=== PATIENT | male | born 1990 | race African-American/Black ===

== ENCOUNTER 2021-08-14 18:46 | Inpatient (IN) ==
[2021-08-14] MEDS ORDERED: Ipratropium/Albuterol Neb 3 ML ONE (19:07)
[2021-08-14] MEDS ORDERED: methylPREDNISolone 125 MG/2 ML VIAL ONE (19:07)
[2021-08-14 19:21] LABS: Basophils % 0.2 %; Hematocrit 26.6 % (37.5-50.1); Hemoglobin 9.2 g/dL (12.9-16.9); Immature Granulocytes % 3.8 % (0-4); Lymphocytes # 0.6 K/mcL (0.6-4.6); Mean Corpuscular HGB Conc 34.6 g/dL (31.6-35.5); Mean Corpuscular Hemoglobin 30.3 pg (28.0-33.3); Mean Corpuscular Volume 87.5 fL (83.0-100.0); Mean Platelet Volume 12.8 fL (9.4-12.4); Monocytes # 0.4 K/mcL (0.0-1.3); Monocytes % 2.5 %; Neutrophils # 13.4 K/mcL (1.6-8.9); Nucleated Red Blood Cells 0.4 /100 WBC (0); Platelet Count 232 K/mcL (140-400); Red Blood Count 3.04 M/mcL (4.19-5.50); Red Cell Distribution Width 13.6 % (11.5-14.5); Segmented Neutrophils % 89.5 %
[2021-08-14 19:28] LABS: INR 1.3
[2021-08-14 19:31] LABS: Activated Partial Thrombo Time 28.2 Seconds (26.0-36.0)
[2021-08-14 19:34] LABS: VBG HCO3 11 mEq/L (21-27); VBG PCO2 35 mmHg (41-51); VBG PH 7.11 pH Units (7.32-7.42); VBG PO2 119 mmHg (25-50)
[2021-08-14 19:44] LABS: Blood Urea Nitrogen > 130 mg/dL (6-20); Calcium 5.4 mg/dL (8.6-10.3); Carbon Dioxide 11 mEq/L (23-29); Chloride 89 mEq/L (98-107); Glucose 239 mg/dL (70-105); Potassium 5.7 mEq/L (3.5-5.1); Sodium 125 mEq/L (136-145); Troponin I 0.54 ng/mL (< 0.04)
[2021-08-14 19:56] LABS: Influenza A PCR Negative (Negative); Influenza B PCR Negative (Negative); Resp. Syncytial Virus PCR Negative (Negative)
[2021-08-14 19:58] LABS: SARS-CoV-2 by PCR (In House) Positive (Negative)
[2021-08-14] MEDS ORDERED: Sodium Bicarbonate 150 MEQ in Water for inj. (sterile) 1,000 ML IVC SCH (20:00)
[2021-08-14] MEDS ORDERED: cefTRIAXone 1,000 MG in Water for inj. (sterile) 10 ML IVP ONE ×2 (20:00→20:57)
[2021-08-14 20:04] LABS: Alanine Aminotransferase 19 Units/L (7-52); Albumin 3.3 g/dL (3.5-5.7); Albumin/Globulin Ratio 0.9 (1.1-2.2); Alkaline Phosphatase 75 Units/L (34-104); Aspartate Amino Transferase 27 Units/L (13-39); Bilirubin,Indirect 0.3 mg/dL (0.0-1.0); Bilirubin,Total 0.3 mg/dL (0.3-1.0); Globulin 3.5 g/dL (2.4-3.5); Total Protein 6.8 g/dL (6.4-8.9)
[2021-08-14] MEDS ORDERED: Bumetanide 1 MG/4 ML VIAL IVP ONE (20:08)
[2021-08-14] MEDS: Calcium Gluconate 1gm/50mL BAG IVPB SCH ×2 (20:11→21:25)
[2021-08-14] MEDS ORDERED: Dexamethasone Sodium Phos/PF 10 MG/ML VIAL IVP ONE (20:12)
[2021-08-14 20:50] LABS: Magnesium 2.5 mg/dL (1.6-2.6); Phosphorous 13.7 mg/dL (2.7-4.5)
[2021-08-14 20:54] LABS: Amorphous Sediment,Urine Few per hpf (None-Few); Bacteria,Urine Few per hpf (None-Few); Bilirubin,Urine Negative (Negative); Blood,Urine Moderate (Negative); Clarity,Urine Clear (Clear); Color,Urine Light-Yellow (Yellow); Glucose,Urine (UA) 300 mg/dL (Normal); Ketones,Urine Negative (Negative); Leukocyte Esterase,Urine Negative (Negative); Nitrite,Urine Negative (Negative); Protein,Urine >=600 mg/dL (Neg-Trace); RBC,Urine 0-3 per hpf (0-3); Specific Gravity,Urine 1.015 (1.010-1.025); Urobilinogen,Urine Normal (Normal)
[2021-08-14] MEDS ORDERED: *HR* Heparin 5,000 UNIT/ML VIAL IVP ONE (21:01)
[2021-08-14] MEDS ORDERED: *HR* Heparin 5,000 UNIT/ML VIAL IVP PRN ×2 (21:01)
[2021-08-14] MEDS ORDERED: Melatonin 3 MG TABLET PO PRN (21:20)
[2021-08-14] MEDS ORDERED: Naloxone 0.4 MG/ML INJ IVP PRN (21:20)
[2021-08-14 21:24] LABS: Acetaminophen 15 mcg/mL (10-20); Salicylate < 2.5 mg/dL (15.0-30.0)
[2021-08-14 21:25] LABS: Amphetamine Screen,Urine Negative ng/mL (Cutoff=1000); Barbiturate Screen,Urine Negative ng/mL (Cutoff=200); Benzodiazepines Screen,Urine Negative ng/mL (Cutoff=200); Cannabinoid Screen,Urine Negative ng/mL (Cutoff = 50); Cocaine Screen,Urine Negative ng/mL (Cutoff= 300); Opiate Screen,Urine Negative ng/mL (Cutoff=300); Phencyclidine Screen,Urine Negative ng/mL (Cutoff=25)
[2021-08-14] MEDS: Heparin 25,000UNIT/250ML 1/2NS 25,000 UNIT/250 ML IV.SOLN IVC SCH (21:25)
[2021-08-14] MEDS ORDERED: Perflutren Lipid Microsphere 1.3 ML in 0.9 % Sodium Chloride 8.7 ML IVP PRN (21:34)
[2021-08-14 22:05] LABS: Creatine Kinase 1308 Units/L (30-223)
[2021-08-14] MEDS: Ipratropium 1 PUFF INHALER IH SCH (22:49)
[2021-08-15] MEDS ORDERED: Morphine Sulfate 2 MG/ML SYRINGE IVP ONE (00:20)
[2021-08-15 00:26] LABS: ABG Base Excess -15 mEq/L (-2 to 3); ABG HCO3 12 mEq/L (21-27); ABG Oxygen Saturation 98 % (95-98); ABG PCO2 32 mmHg (35-45); ABG PO2 128 mmHg (85-104); ABG TCO2 13 mEq/L (20-26)
[2021-08-15] MEDS ORDERED: Dexmedetomidine HCl 400 MCG/100 ML MLS IVC ONE (00:29)
[2021-08-15] MEDS ORDERED: Perflutren Lipid Microsphere 1.3 ML in 0.9 % Sodium Chloride 8.7 ML IVP PRN (00:40)
[2021-08-15 00:43] LABS: VBG Ionized Calcium 0.59 mmol/L (1.15-1.35)
[2021-08-15 00:44] LABS: Basophils # 0.1 K/mcL (0.0-0.2); Basophils % 0.3 %; Hematocrit 26.2 % (37.5-50.1); Immature Granulocytes % 3.3 % (0-4); Lymphocytes # 0.5 K/mcL (0.6-4.6); Lymphocytes % 2.9 %; Mean Corpuscular HGB Conc 34.4 g/dL (31.6-35.5); Mean Corpuscular Volume 87.3 fL (83.0-100.0); Mean Platelet Volume 12.9 fL (9.4-12.4); Monocytes # 0.4 K/mcL (0.0-1.3); Neutrophils # 16.5 K/mcL (1.6-8.9); Nucleated Red Blood Cells 0.7 /100 WBC (0); Platelet Count 225 K/mcL (140-400); Red Cell Distribution Width 13.6 % (11.5-14.5); Segmented Neutrophils % 91.5 %
[2021-08-15] MEDS: Dexmedetomidine HCl 400 MCG/100 ML MLS IVC SCH ×3 (00:45→07:50)
[2021-08-15] MEDS: Cefepime HCl 1,000 MG in 0.9 % Sodium Chloride 10 ML IVP SCH ×3 (00:49→14:01)
[2021-08-15 00:56] LABS: INR 1.4; Prothrombin Time 15.3 Seconds (9.4-12.1)
[2021-08-15 01:04] LABS: Activated Partial Thrombo Time 73.1 Seconds (26.0-36.0)
[2021-08-15 01:06] LABS: Blood Urea Nitrogen > 130 mg/dL (6-20); C-Reactive Protein 125 mg/L (Less than 10); Calcium 5.6 mg/dL (8.6-10.3); Carbon Dioxide 12 mEq/L (23-29); Chloride 90 mEq/L (98-107); Glucose 148 mg/dL (70-105); Lactate Dehydrogenase 737 Units/L (140-271); Magnesium 2.4 mg/dL (1.6-2.6); Phosphorous 13.3 mg/dL (2.7-4.5); Potassium 5.8 mEq/L (3.5-5.1); Sodium 127 mEq/L (136-145); Troponin I 0.45 ng/mL (< 0.04)
[2021-08-15] MEDS ORDERED: Insulin Human Regular 10 UNIT in 0.9 % Sodium Chloride 10 ML IV ONE (01:10)
[2021-08-15] MEDS ORDERED: *HR* Dextrose 50 % in Water (Syg) 50 ML SYRINGE IVP ONE (01:10)
[2021-08-15] MEDS ORDERED: SODIUM ZIRCONIUM CYCLOSILICATE 5 GM POWD.PACK PO SCH ×2 (01:12→05:45)
[2021-08-15] MEDS ORDERED: Furosemide 40 MG/4 ML VIAL IVP ONE ×2 (01:12→10:51)
[2021-08-15] MEDS: Calcium Gluconate 1gm/50mL 1 GM/50 ML BAG IVPB SCH ×4 (01:33→17:21)
[2021-08-15] MEDS: Sodium Bicarbonate 150 MEQ in D5% in Water 1,000 ML IVC SCH ×2 (01:34→15:15)
[2021-08-15] MEDS: Ipratropium 1 PUFF INHALER IH SCH ×4 (03:55→19:32)
[2021-08-15 04:53] LABS: Basophils % 0.1 %; Hematocrit 21.5 % (37.5-50.1); Hemoglobin 7.6 g/dL (12.9-16.9); Immature Granulocytes % 1.9 % (0-4); Lymphocytes # 0.6 K/mcL (0.6-4.6); Lymphocytes % 4.1 %; Mean Corpuscular HGB Conc 35.3 g/dL (31.6-35.5); Mean Corpuscular Hemoglobin 30.5 pg (28.0-33.3); Mean Corpuscular Volume 86.3 fL (83.0-100.0); Mean Platelet Volume 12.5 fL (9.4-12.4); Monocytes # 0.4 K/mcL (0.0-1.3); Neutrophils # 12.5 K/mcL (1.6-8.9); Nucleated Red Blood Cells 0.4 /100 WBC (0); Platelet Count 147 K/mcL (140-400); Red Blood Count 2.49 M/mcL (4.19-5.50); Red Cell Distribution Width 13.2 % (11.5-14.5); Segmented Neutrophils % 90.9 %; White Blood Count 13.7 K/mcL (4.3-11.1)
[2021-08-15 05:03] LABS: INR 1.3; Prothrombin Time 14.7 Seconds (9.4-12.1)
[2021-08-15 05:06] LABS: Complement C3 109 mg/dL (87-200)
[2021-08-15 05:14] LABS: Alanine Aminotransferase 17 Units/L (7-52); Albumin 2.6 g/dL (3.5-5.7); Albumin/Globulin Ratio 0.9 (1.1-2.2); Alkaline Phosphatase 63 Units/L (34-104); Aspartate Amino Transferase 25 Units/L (13-39); Bilirubin,Direct 0.1 mg/dL (0.0-0.2); Bilirubin,Indirect 0.2 mg/dL (0.0-1.0); Bilirubin,Total 0.3 mg/dL (0.3-1.0); Blood Urea Nitrogen > 130 mg/dL (6-20); Calcium 5.9 mg/dL (8.6-10.3); Carbon Dioxide 16 mEq/L (23-29); Chloride 92 mEq/L (98-107); Globulin 2.8 g/dL (2.4-3.5); Glucose 112 mg/dL (70-105); Magnesium 2.5 mg/dL (1.6-2.6); Phosphorous 12.8 mg/dL (2.7-4.5); Sodium 129 mEq/L (136-145); Total Protein 5.4 g/dL (6.4-8.9)
[2021-08-15 05:26] LABS: Hepatitis B Surface Antigen Nonreactive (Nonreactive)
[2021-08-15 05:54] LABS: Mixed Venous Blood pCO2 35 mmHg (44-46); Mixed Venous Blood pH 7.23 pH Units (7.34-7.36); Mixed Venous Blood pO2 42 mmHg (35-45)
[2021-08-15 05:55] LABS: Hepatitis B Core IgM Nonreactive (Nonreactive)
[2021-08-15 05:56] LABS: Hepatitis A Antibody IgM Nonreactive (Nonreactive); Hepatitis C Virus Antibody Nonreactive (Nonreactive)
[2021-08-15] MEDS: Calcium Gluconate 1gm/50mL 1 GM/50 ML BAG IVPB PRN ×4 (06:02→21:44)
[2021-08-15 06:56] LABS: Estimated Average Glucose 131 mg/dl; Hemoglobin A1C 6.2 %
[2021-08-15 10:11] LABS: Hematocrit 21.3 % (37.5-50.1); Hemoglobin 7.4 g/dL (12.9-16.9)
[2021-08-15 10:35] LABS: Blood Urea Nitrogen > 130 mg/dL (6-20); Carbon Dioxide 15 mEq/L (23-29); Chloride 90 mEq/L (98-107); Glucose 150 mg/dL (70-105); Potassium 6.4 mEq/L (3.5-5.1); Sodium 126 mEq/L (136-145)
[2021-08-15] MEDS: SODIUM ZIRCONIUM CYCLOSILICATE 5 GM POWD.PACK PO SCH ×2 (11:24→19:55)
[2021-08-15] MEDS: niCARdipine 20 MG/200 ML MLS IVC SCH ×4 (13:12→22:38)
[2021-08-15] MEDS: Heparin 25,000UNIT/250ML 1/2NS 25,000 UNIT/250 ML IV.SOLN IVC SCH (15:13)
[2021-08-15 16:01] LABS: Blood Urea Nitrogen > 130 mg/dL (6-20); Calcium 6.1 mg/dL (8.6-10.3); Carbon Dioxide 14 mEq/L (23-29); Chloride 87 mEq/L (98-107); Glucose 177 mg/dL (70-105); Potassium 4.6 mEq/L (3.5-5.1); Sodium 127 mEq/L (136-145)
[2021-08-15] MEDS: Aspirin Enteric Coated 81 MG Tablet PO SCH (16:36)
[2021-08-15 20:47] LABS: VBG Ionized Calcium 0.66 mmol/L (1.15-1.35)
[2021-08-15 20:58] LABS: Blood Urea Nitrogen > 130 mg/dL (6-20); Calcium 6.2 mg/dL (8.6-10.3); Carbon Dioxide 16 mEq/L (23-29); Chloride 87 mEq/L (98-107); Glucose 183 mg/dL (70-105); Magnesium 2.4 mg/dL (1.6-2.6); Phosphorous 13.1 mg/dL (2.7-4.5); Potassium 4.3 mEq/L (3.5-5.1); Sodium 127 mEq/L (136-145)
[2021-08-15 22:16] LABS: Hematocrit 20.3 % (37.5-50.1); Hemoglobin 7.2 g/dL (12.9-16.9)
[2021-08-16] MEDS: niCARdipine 20 MG/200 ML MLS IVC SCH ×7 (01:24→21:54)
[2021-08-16 03:30] LABS: Basophils % 0.1 %; Hematocrit 19.7 % (37.5-50.1); Immature Granulocytes % 1.2 % (0-4); Lymphocytes # 0.5 K/mcL (0.6-4.6); Lymphocytes % 3.1 %; Mean Corpuscular HGB Conc 35.5 g/dL (31.6-35.5); Mean Corpuscular Hemoglobin 30.6 pg (28.0-33.3); Mean Platelet Volume 12.8 fL (9.4-12.4); Monocytes # 0.8 K/mcL (0.0-1.3); Monocytes % 5.3 %; Neutrophils # 13.2 K/mcL (1.6-8.9); Nucleated Red Blood Cells 0.5 /100 WBC (0); Platelet Count 200 K/mcL (140-400); Red Blood Count 2.29 M/mcL (4.19-5.50); Red Cell Distribution Width 13.5 % (11.5-14.5); Segmented Neutrophils % 90.3 %; White Blood Count 14.6 K/mcL (4.3-11.1)
[2021-08-16] MEDS: Ipratropium 1 PUFF INHALER IH SCH ×4 (03:33→20:36)
[2021-08-16 03:38] LABS: VBG Ionized Calcium 0.63 mmol/L (1.15-1.35)
[2021-08-16 03:57] LABS: Blood Urea Nitrogen > 130 mg/dL (6-20); Calcium 6.1 mg/dL (8.6-10.3); Carbon Dioxide 16 mEq/L (23-29); Chloride 87 mEq/L (98-107); Glucose 192 mg/dL (70-105); Magnesium 2.3 mg/dL (1.6-2.6); Phosphorous 13.2 mg/dL (2.7-4.5); Potassium 4.5 mEq/L (3.5-5.1); Sodium 128 mEq/L (136-145)
[2021-08-16] MEDS: Calcium Gluconate 1gm/50mL 1 GM/50 ML BAG IVPB PRN ×2 (04:46→05:14)
[2021-08-16] MEDS: Sodium Bicarbonate 150 MEQ in D5% in Water 1,000 ML IVC SCH ×2 (08:00→23:39)
[2021-08-16] MEDS: Cefepime HCl 1,000 MG in 0.9 % Sodium Chloride 10 ML IVP SCH (08:07)
[2021-08-16] MEDS: Aspirin Enteric Coated 81 MG Tablet PO SCH (08:07)
[2021-08-16] MEDS: SODIUM ZIRCONIUM CYCLOSILICATE 5 GM POWD.PACK PO SCH (08:08)
[2021-08-16] MEDS ORDERED: 0.9 % Sodium Chloride 250 ML IVC PRN (08:34)
[2021-08-16] MEDS ORDERED: 0.9 % Sodium Chloride 1,000 ML PRIME SCH (08:45)
[2021-08-16] MEDS: Acetaminophen 325 MG TABLET PO PRN (09:24)
[2021-08-16 09:56] LABS: VBG Ionized Calcium 0.62 mmol/L (1.15-1.35)
[2021-08-16 10:14] LABS: % Iron Saturation 56 % (20-55); Blood Urea Nitrogen > 130 mg/dL (6-20); Calcium 5.9 mg/dL (8.6-10.3); Carbon Dioxide 17 mEq/L (23-29); Chloride 86 mEq/L (98-107); Glucose 171 mg/dL (70-105); Iron 105 mcg/dL (65-175); Magnesium 2.3 mg/dL (1.6-2.6); Potassium 4.3 mEq/L (3.5-5.1); Sodium 127 mEq/L (136-145); Transferrin 133 mg/dL (203-362)
[2021-08-16] MEDS: Heparin 25,000UNIT/250ML 1/2NS 25,000 UNIT/250 ML IV.SOLN IVC SCH (11:13)
[2021-08-16 12:43] LABS: Protein/Creatinine Ratio,Urine 3.99 mg/mg (0.00-0.20)
[2021-08-16 13:06] LABS: Hepatitis B Surface Antibody > 850.00 mIU/mL
[2021-08-16 13:16] LABS: Hepatitis B Surface Antigen Nonreactive (Nonreactive)
[2021-08-16] MEDS ORDERED: Heparin 1,000 UNITS/500 mL 500 ML ONE (13:23)
[2021-08-16] MEDS ORDERED: *HR* Heparin 5,000 UNIT/ML VIAL ONE (13:50)
[2021-08-16 14:59] LABS: Hematocrit 17.6 % (37.5-50.1); Hemoglobin 6.3 g/dL (12.9-16.9)
[2021-08-16] MEDS ORDERED: Ergocalciferol (VIT D2) 50,000 UNIT (1.25MG) CAP PO SCH (15:00)
[2021-08-16 16:42] LABS: VBG Ionized Calcium 0.69 mmol/L (1.15-1.35)
[2021-08-16 17:09] LABS: Blood Urea Nitrogen > 130 mg/dL (6-20); Calcium 6.4 mg/dL (8.6-10.3); Carbon Dioxide 20 mEq/L (23-29); Chloride 87 mEq/L (98-107); Glucose 244 mg/dL (70-105); Potassium 4.1 mEq/L (3.5-5.1); Sodium 129 mEq/L (136-145)
[2021-08-16] MEDS: Calcium Gluconate 1gm/50mL 1 GM/50 ML BAG IVPB SCH ×2 (18:15→19:45)
[2021-08-16] MEDS: Insulin LISPRO 300 UNITS/3 ML VIAL SUBQ SCH (18:34)
[2021-08-16 18:43] LABS: Hematocrit 18.3 % (37.5-50.1); Hemoglobin 6.5 g/dL (12.9-16.9)
[2021-08-16] MEDS ORDERED: Calcium Chloride 1,000 MG in 0.9 % Sodium Chloride 100 ML IVPB ONE (21:45)
[2021-08-17] MEDS: Insulin LISPRO 300 UNITS/3 ML VIAL SUBQ SCH ×5 (00:13→23:56)
[2021-08-17] MEDS: niCARdipine 20 MG/200 ML MLS IVC SCH ×6 (00:36→23:17)
[2021-08-17 03:48] LABS: Hematocrit 18.7 % (37.5-50.1); Hemoglobin 6.6 g/dL (12.9-16.9); Mean Corpuscular HGB Conc 35.3 g/dL (31.6-35.5); Mean Corpuscular Hemoglobin 29.9 pg (28.0-33.3); Mean Corpuscular Volume 84.6 fL (83.0-100.0); Mean Platelet Volume 12.4 fL (9.4-12.4); Nucleated Red Blood Cells 1.3 /100 WBC (0); Platelet Count 179 K/mcL (140-400); Red Blood Count 2.21 M/mcL (4.19-5.50); White Blood Count 10.6 K/mcL (4.3-11.1)
[2021-08-17 03:50] LABS: VBG Ionized Calcium 0.79 mmol/L (1.15-1.35)
[2021-08-17 04:04] LABS: Alanine Aminotransferase 18 Units/L (7-52); Albumin 2.8 g/dL (3.5-5.7); Alkaline Phosphatase 54 Units/L (34-104); Aspartate Amino Transferase 18 Units/L (13-39); Bilirubin,Total 0.2 mg/dL (0.3-1.0); Blood Urea Nitrogen 128 mg/dL (6-20); Calcium 6.8 mg/dL (8.6-10.3); Carbon Dioxide 23 mEq/L (23-29); Chloride 89 mEq/L (98-107); Globulin 2.8 g/dL (2.4-3.5); Glucose 224 mg/dL (70-105); Magnesium 2.2 mg/dL (1.6-2.6); Osmolality,Calculated 316 (280-300); Phosphorous 8.8 mg/dL (2.7-4.5); Potassium 4.2 mEq/L (3.5-5.1); Sodium 129 mEq/L (136-145); Total Protein 5.6 g/dL (6.4-8.9)
[2021-08-17] MEDS: Ipratropium 1 PUFF INHALER IH SCH ×4 (04:05→21:50)
[2021-08-17 04:06] LABS: Lymphocytes # 2.5 K/mcL (0.6-4.6); Monocytes # 0.2 K/mcL (0.0-1.3); Neutrophils # 7.8 K/mcL (1.6-8.9); Platelet Estimate Normal (Normal)
[2021-08-17] MEDS: Heparin 25,000UNIT/250ML 1/2NS 25,000 UNIT/250 ML IV.SOLN IVC SCH (04:21)
[2021-08-17 07:15] LABS: VBG Ionized Calcium 0.75 mmol/L (1.15-1.35)
[2021-08-17 07:16] LABS: Hematocrit 18.6 % (37.5-50.1); Hemoglobin 6.5 g/dL (12.9-16.9)
[2021-08-17] MEDS ORDERED: *HR* Heparin 10,000 UNIT/10 ML VIAL IV PRN (08:36)
[2021-08-17] MEDS ORDERED: 0.9 % Sodium Chloride 250 ML IVC PRN (08:36)
[2021-08-17] MEDS: Cefepime HCl 1,000 MG in 0.9 % Sodium Chloride 10 ML IVP SCH (08:49)
[2021-08-17] MEDS: calcitrioL 0.25 MCG CAPSULE PO SCH (08:49)
[2021-08-17] MEDS: Aspirin Enteric Coated 81 MG Tablet PO SCH (08:49)
[2021-08-17] MEDS: Dexamethasone Sodium Phos/PF 10 MG/ML VIAL IVP SCH (08:50)
[2021-08-17] MEDS ORDERED: Metoprolol XL (24 HR) Succ 25 MG TAB.ER.24H PO SCH (09:00)
[2021-08-17] MEDS: Dexmedetomidine HCl 400 MCG/100 ML MLS IVC SCH (18:11)
[2021-08-17 21:00] LABS: Basophils % 0.2 %; Hematocrit 19.7 % (37.5-50.1); Hemoglobin 6.8 g/dL (12.9-16.9); Immature Granulocytes % 4.5 % (0-4); Lymphocytes # 0.4 K/mcL (0.6-4.6); Lymphocytes % 2.5 %; Mean Corpuscular HGB Conc 34.5 g/dL (31.6-35.5); Mean Corpuscular Hemoglobin 29.8 pg (28.0-33.3); Mean Corpuscular Volume 86.4 fL (83.0-100.0); Mean Platelet Volume 12.4 fL (9.4-12.4); Monocytes % 6.3 %; Neutrophils # 13.9 K/mcL (1.6-8.9); Platelet Count 194 K/mcL (140-400); Red Blood Count 2.28 M/mcL (4.19-5.50); Red Cell Distribution Width 14.6 % (11.5-14.5); Segmented Neutrophils % 86.5 %
[2021-08-17 21:01] LABS: VBG Ionized Calcium 0.85 mmol/L (1.15-1.35)
[2021-08-17 21:03] LABS: White Blood Count 16.1 K/mcL (4.3-11.1)
[2021-08-17] MEDS ORDERED: Calcium Chloride 2,000 MG in 0.9 % Sodium Chloride 100 ML IVPB ONE (21:14)
[2021-08-17 21:15] LABS: Calcium 7.1 mg/dL (8.6-10.3); Potassium 4.3 mEq/L (3.5-5.1)
[2021-08-17] MEDS ORDERED: 0.9 % Sodium Chloride 250 ML ONE (21:59)
[2021-08-18] MEDS: niCARdipine 20 MG/200 ML MLS IVC SCH ×5 (01:23→21:39)
[2021-08-18] MEDS: Acetaminophen 325 MG TABLET PO PRN (03:26)
[2021-08-18] MEDS: Ipratropium 1 PUFF INHALER IH SCH ×4 (03:53→19:45)
[2021-08-18 04:17] LABS: Basophils # 0.1 K/mcL (0.0-0.2); Basophils % 0.3 %; Immature Granulocytes % 4.6 % (0-4); Lymphocytes # 0.4 K/mcL (0.6-4.6); Lymphocytes % 1.8 %; Mean Corpuscular HGB Conc 34.8 g/dL (31.6-35.5); Mean Corpuscular Volume 86.1 fL (83.0-100.0); Mean Platelet Volume 11.8 fL (9.4-12.4); Monocytes # 1.5 K/mcL (0.0-1.3); Monocytes % 7.8 %; Neutrophils # 16.6 K/mcL (1.6-8.9); Nucleated Red Blood Cells 0.9 /100 WBC (0); Platelet Count 204 K/mcL (140-400); Red Blood Count 2.67 M/mcL (4.19-5.50); Red Cell Distribution Width 14.7 % (11.5-14.5); Segmented Neutrophils % 85.5 %; White Blood Count 19.4 K/mcL (4.3-11.1)
[2021-08-18 04:18] LABS: VBG Ionized Calcium 0.94 mmol/L (1.15-1.35)
[2021-08-18 04:41] LABS: Albumin 3.2 g/dL (3.5-5.7); Bilirubin,Total 0.3 mg/dL (0.3-1.0); Globulin 3.3 g/dL (2.4-3.5); Magnesium 2.5 mg/dL (1.6-2.6); Phosphorous 7.2 mg/dL (2.7-4.5); Potassium 4.6 mEq/L (3.5-5.1); Total Protein 6.5 g/dL (6.4-8.9)
[2021-08-18] MEDS ORDERED: Calcium Chloride 2,000 MG in 0.9 % Sodium Chloride 100 ML IVPB ONE (05:34)
[2021-08-18] MEDS: Insulin LISPRO 300 UNITS/3 ML VIAL SUBQ SCH ×3 (06:06→18:02)
[2021-08-18] MEDS: Heparin 25,000UNIT/250ML 1/2NS 25,000 UNIT/250 ML IV.SOLN IVC SCH (06:52)
[2021-08-18] MEDS ORDERED: 0.9 % Sodium Chloride 250 ML IVC PRN (07:58)
[2021-08-18] MEDS: Cefepime HCl 1,000 MG in 0.9 % Sodium Chloride 10 ML IVP SCH (07:59)
[2021-08-18] MEDS: Dexamethasone Sodium Phos/PF 10 MG/ML VIAL IVP SCH (08:00)
[2021-08-18] MEDS: calcitrioL 0.25 MCG CAPSULE PO SCH (08:01)
[2021-08-18] MEDS: Aspirin Enteric Coated 81 MG Tablet PO SCH (08:01)
[2021-08-18 10:42] LABS: ANA IgG by ELISA NONE DETECTED (None Detected)
[2021-08-18] MEDS: Dexmedetomidine HCl 400 MCG/100 ML MLS IVC SCH (14:23)
[2021-08-18] MEDS: amLODIPine 5 MG TABLET PO SCH (16:25)
[2021-08-18] MEDS: *HR* Heparin 5,000 UNIT/ML VIAL SQ SCH (17:46)
[2021-08-19] MEDS: niCARdipine 20 MG/200 ML MLS IVC SCH ×6 (01:48→20:56)
[2021-08-19] MEDS: Ipratropium 1 PUFF INHALER IH SCH ×4 (03:58→20:19)
[2021-08-19 04:04] LABS: Hemoglobin 8.1 g/dL (12.9-16.9)
[2021-08-19 04:06] LABS: Hematocrit 24.1 % (37.5-50.1); Mean Corpuscular HGB Conc 33.6 g/dL (31.6-35.5); Mean Corpuscular Hemoglobin 29.6 pg (28.0-33.3); Mean Platelet Volume 12.4 fL (9.4-12.4); Nucleated Red Blood Cells 0.6 /100 WBC (0); Platelet Count 199 K/mcL (140-400); Red Blood Count 2.74 M/mcL (4.19-5.50); Red Cell Distribution Width 15.1 % (11.5-14.5); White Blood Count 26.2 K/mcL (4.3-11.1)
[2021-08-19 04:09] LABS: VBG Ionized Calcium 0.94 mmol/L (1.15-1.35)
[2021-08-19 04:25] LABS: Bilirubin,Total 0.4 mg/dL (0.3-1.0); Calcium 7.9 mg/dL (8.6-10.3); Globulin 3.1 g/dL (2.4-3.5); Magnesium 2.4 mg/dL (1.6-2.6); Potassium 4.4 mEq/L (3.5-5.1); Total Protein 6.1 g/dL (6.4-8.9)
[2021-08-19 04:34] LABS: Lymphocytes # 0.5 K/mcL (0.6-4.6); Monocytes # 1.1 K/mcL (0.0-1.3); Neutrophils # 24.1 K/mcL (1.6-8.9); Platelet Estimate Normal (Normal)
[2021-08-19] MEDS ORDERED: Calcium Chloride 2,000 MG in 0.9 % Sodium Chloride 100 ML IVPB ONE (04:53)
[2021-08-19] MEDS: Insulin LISPRO 300 UNITS/3 ML VIAL SUBQ SCH ×4 (05:09→18:06)
[2021-08-19] MEDS: *HR* Heparin 5,000 UNIT/ML VIAL SQ SCH (05:11)
[2021-08-19] MEDS: Dexamethasone Sodium Phos/PF 10 MG/ML VIAL IVP SCH (07:57)
[2021-08-19] MEDS: amLODIPine 5 MG TABLET PO SCH (07:59)
[2021-08-19] MEDS: Aspirin Enteric Coated 81 MG Tablet PO SCH (07:59)
[2021-08-19] MEDS ORDERED: *HR* Heparin 10,000 UNIT/10 ML VIAL IV PRN (08:00)
[2021-08-19] MEDS: Cefepime HCl 1,000 MG in 0.9 % Sodium Chloride 10 ML IVP SCH ×2 (08:00→17:02)
[2021-08-19] MEDS: calcitrioL 0.25 MCG CAPSULE PO SCH (08:00)
[2021-08-19] MEDS ORDERED: 0.9 % Sodium Chloride 250 ML IVC PRN (08:00)
[2021-08-19] MEDS: hydrALAZINE 25 MG TABLET PO SCH ×2 (08:17→20:17)
[2021-08-19] MEDS ORDERED: amLODIPine 5 MG TABLET PO SCH (09:00)
[2021-08-19] MEDS ORDERED: amLODIPine 5 MG TABLET PO ONE (09:30)
[2021-08-19] MEDS: Dexmedetomidine HCl 400 MCG/100 ML MLS IVC SCH ×4 (10:16→20:54)
[2021-08-19] MEDS: Nitroglycerin 1 INCH/GM PACKET TP SCH (12:05)
[2021-08-19] MEDS ORDERED: *HR* Heparin 5,000 UNIT/ML VIAL IVP PRN (14:37)
[2021-08-19] MEDS ORDERED: *HR* Heparin 5,000 UNIT/ML VIAL IVP ONE (14:37)
[2021-08-19] MEDS: Heparin 25,000UNIT/250ML 1/2NS 25,000 UNIT/250 ML IV.SOLN IVC SCH (15:09)
[2021-08-20] MEDS: Dexmedetomidine HCl 400 MCG/100 ML MLS IVC SCH ×6 (00:43→17:57)
[2021-08-20] MEDS: Insulin LISPRO 300 UNITS/3 ML VIAL SUBQ SCH ×4 (00:48→18:00)
[2021-08-20 01:52] LABS: Hematocrit 22.7 % (37.5-50.1); Hemoglobin 7.6 g/dL (12.9-16.9); Mean Corpuscular HGB Conc 33.5 g/dL (31.6-35.5); Mean Corpuscular Hemoglobin 29.6 pg (28.0-33.3); Mean Corpuscular Volume 88.3 fL (83.0-100.0); Mean Platelet Volume 12.5 fL (9.4-12.4); Nucleated Red Blood Cells 0.2 /100 WBC (0); Platelet Count 128 K/mcL (140-400); Red Blood Count 2.57 M/mcL (4.19-5.50); Red Cell Distribution Width 14.6 % (11.5-14.5); White Blood Count 17.5 K/mcL (4.3-11.1)
[2021-08-20 01:56] LABS: VBG Ionized Calcium 1.02 mmol/L (1.15-1.35)
[2021-08-20] MEDS ORDERED: Vancomycin 1,750 MG/517.5 ML IV.SOLN IVPB ONE (02:00)
[2021-08-20 02:10] LABS: Albumin 2.5 g/dL (3.5-5.7); Albumin/Globulin Ratio 0.9 (1.1-2.2); Bilirubin,Total 0.3 mg/dL (0.3-1.0); Calcium 7.8 mg/dL (8.6-10.3); Globulin 2.9 g/dL (2.4-3.5); Magnesium 2.5 mg/dL (1.6-2.6); Phosphorous 7.2 mg/dL (2.7-4.5); Potassium 5.1 mEq/L (3.5-5.1); Total Protein 5.4 g/dL (6.4-8.9)
[2021-08-20] MEDS: niCARdipine 20 MG/200 ML MLS IVC SCH ×4 (02:36→15:56)
[2021-08-20 03:17] LABS: Lymphocytes # 0.4 K/mcL (0.6-4.6); Neutrophils # 17.2 K/mcL (1.6-8.9); Platelet Estimate Decreased (Normal)
[2021-08-20 03:18] LABS: Large Platelets Present (Not Present)
[2021-08-20] MEDS: Ipratropium 1 PUFF INHALER IH SCH ×3 (03:45→15:53)
[2021-08-20] MEDS: Calcium Gluconate 1gm/50mL 1 GM/50 ML BAG IVPB SCH ×2 (04:22→05:00)
[2021-08-20] MEDS: *HR* Heparin 5,000 UNIT/ML VIAL IVP PRN (06:35)
[2021-08-20] MEDS: Nitroglycerin 1 INCH/GM PACKET TP SCH ×2 (06:46→15:56)
[2021-08-20] MEDS ORDERED: 0.9 % Sodium Chloride 250 ML IVC PRN ×2 (08:04→11:56)
[2021-08-20] MEDS: Heparin 25,000UNIT/250ML 1/2NS 25,000 UNIT/250 ML IV.SOLN IVC SCH ×2 (08:06→22:11)
[2021-08-20] MEDS: Dexamethasone Sodium Phos/PF 10 MG/ML VIAL IVP SCH (08:17)
[2021-08-20] MEDS: Acetaminophen 325 MG TABLET PO PRN (08:19)
[2021-08-20] MEDS: calcitrioL 0.25 MCG CAPSULE PO SCH (08:39)
[2021-08-20] MEDS: Aspirin Enteric Coated 81 MG Tablet PO SCH (08:39)
[2021-08-20] MEDS: hydrALAZINE 25 MG TABLET PO SCH ×2 (08:39→19:26)
[2021-08-20] MEDS: amLODIPine 5 MG TABLET PO SCH (08:39)
[2021-08-20] MEDS: MetroNIDAZOLE 500 MG/100 ML 500 MG/100 ML BAG IVPB SCH ×2 (09:25→18:02)
[2021-08-20] MEDS ORDERED: Heparin 1,000 UNITS/500 mL 500 ML ONE (09:29)
[2021-08-20] MEDS ORDERED: Acetaminophen IV 1,000 MG/100 ML BAG IVPB ONE (09:30)
[2021-08-20] MEDS ORDERED: *HR* Heparin 5,000 UNIT/ML VIAL ONE (09:42)
[2021-08-20] MEDS ORDERED: *HR* Succinylcholine 200 MG/10 ML VIAL IVP ONE (14:35)
[2021-08-20] MEDS ORDERED: *HR* Midazolam HCl 2 MG/2 ML VIAL IVP ONE (14:35)
[2021-08-20] MEDS ORDERED: *HR* Midazolam HCl 5 MG/5 ML VIAL IVP ONE (14:35)
[2021-08-20] MEDS ORDERED: *HR* Etomidate 20 MG/10 ML AMPUL IVP ONE (14:35)
[2021-08-20] MEDS ORDERED: *HR* Rocuronium Bromide 50 MG/5 ML VIAL IVP ONE (14:35)
[2021-08-20] MEDS: Morphine Sulfate 2 MG/ML SYRINGE IVP PRN ×2 (16:45→19:56)
[2021-08-20 16:56] LABS: ABG Base Excess -1 mEq/L (-2 to 3); ABG HCO3 24 mEq/L (21-27); ABG Oxygen Saturation 96 % (95-98); ABG PCO2 38 mmHg (35-45); ABG PH 7.41 pH Units (7.32-7.45); ABG PO2 78 mmHg (85-104); ABG TCO2 25 mEq/L (20-26); Blood Gas Modality cpap
[2021-08-20] MEDS ORDERED: Morphine Sulfate 2 MG/ML SYRINGE IVP ONE (17:51)
[2021-08-20] MEDS: Cefepime HCl 1,000 MG in 0.9 % Sodium Chloride 10 ML IVP SCH (18:01)
[2021-08-20] MEDS ORDERED: Dexmedetomidine HCl 400 MCG/100 ML MLS IVC SCH (19:59)
[2021-08-20] MEDS ORDERED: Artificial Tears SOLN 15 ML BOTTLE BOTH EYES PRN (21:14)
[2021-08-20] MEDS ORDERED: Norepinephrine 4 MG/254 ML IV.SOLN IVC SCH (21:30)
[2021-08-20] MEDS: FentaNYL (PF) 1,000 MCG/100 ML IV.SOLN IVC SCH (22:56)
[2021-08-20] MEDS ORDERED: *HR* Cisatracurium 200 MG/20 ML VIAL IVC SCH (23:30)
[2021-08-20] MEDS: Cisatracurium 200 MG in 0.9 % Sodium Chloride 180 ML IVC SCH (23:37)
[2021-08-20] MEDS ORDERED: 0.9 % Sodium Chloride 1,000 ML ONE (23:37)
[2021-08-21 00:36] LABS: ABG Base Excess -8 mEq/L (-2 to 3); ABG HCO3 23 mEq/L (21-27); ABG Oxygen Saturation 63 % (95-98); ABG PCO2 71 mmHg (35-45); ABG PH 7.11 pH Units (7.32-7.45); ABG PO2 45 mmHg (85-104); ABG TCO2 25 mEq/L (20-26); Blood Gas VT 450 cc
[2021-08-21] MEDS: Ipratropium 1 PUFF INHALER IH SCH ×5 (00:42→23:11)
[2021-08-21 00:45] LABS: ANCA IFA Titer <1:20 (<1:20)
[2021-08-21] MEDS: MetroNIDAZOLE 500 MG/100 ML 500 MG/100 ML BAG IVPB SCH ×2 (01:28→10:28)
[2021-08-21] MEDS: Midazolam HCl 50 MG/100 ML IV.SOLN IVC SCH ×4 (01:39→14:41)
[2021-08-21 01:52] LABS: ABG Base Excess -3 mEq/L (-2 to 3); ABG HCO3 24 mEq/L (21-27); ABG Oxygen Saturation 80 % (95-98); ABG PCO2 56 mmHg (35-45); ABG PH 7.24 pH Units (7.32-7.45); ABG PO2 53 mmHg (85-104); ABG TCO2 26 mEq/L (20-26); Blood Gas VT 500 cc
[2021-08-21] MEDS ORDERED: Calcium Gluconate 1gm/50mL 1 GM/50 ML BAG IVPB PRN ×2 (02:50)
[2021-08-21] MEDS ORDERED: Calcium Chloride 4,000 MG in 0.9 % Sodium Chloride 1,000 ML CRRT SCH (03:15)
[2021-08-21] MEDS: Artificial Tears SOLN 15 ML BOTTLE BOTH EYES SCH ×4 (03:26→11:41)
[2021-08-21] MEDS: Insulin LISPRO 300 UNITS/3 ML VIAL SUBQ SCH ×3 (03:27→11:56)
[2021-08-21 05:06] LABS: ABG Base Excess -6 mEq/L (-2 to 3); ABG HCO3 21 mEq/L (21-27); ABG Oxygen Saturation 77 % (95-98); ABG PCO2 51 mmHg (35-45); ABG PH 7.23 pH Units (7.32-7.45); ABG PO2 50 mmHg (85-104); ABG TCO2 23 mEq/L (20-26); Blood Gas VT 500 cc
[2021-08-21 05:28] LABS: Hematocrit 21.9 % (37.5-50.1); Immature Platelets 13.8 % (1.1-6.1); Mean Corpuscular Volume 90.9 fL (83.0-100.0); Mean Platelet Volume 13.8 fL (9.4-12.4); Nucleated Red Blood Cells 1.8 /100 WBC (0); Red Blood Count 2.41 M/mcL (4.19-5.50); White Blood Count 3.9 K/mcL (4.3-11.1)
[2021-08-21] MEDS: 0.9 % Sodium Chloride 1,000 ML PRIME SCH ×9 (05:30→11:41)
[2021-08-21] MEDS: PrismaSATE BGK 4/2.5 5,000 ML CRRT SCH ×4 (05:30→08:00)
[2021-08-21 05:34] LABS: INR 1.6; Prothrombin Time 17.3 Seconds (9.4-12.1)
[2021-08-21 05:38] LABS: Platelet Count 97 K/mcL (140-400)
[2021-08-21 05:47] LABS: Alanine Aminotransferase 59 Units/L (7-52); Albumin 2.3 g/dL (3.5-5.7); Albumin/Globulin Ratio 0.9 (1.1-2.2); Alkaline Phosphatase 63 Units/L (34-104); Aspartate Amino Transferase 82 Units/L (13-39); BUN/Creatinine Ratio 8 (6-26); Bilirubin,Total 0.9 mg/dL (0.3-1.0); Blood Urea Nitrogen 84 mg/dL (6-20); Calcium 6.9 mg/dL (8.6-10.3); Carbon Dioxide 21 mEq/L (23-29); Chloride 96 mEq/L (98-107); Globulin 2.7 g/dL (2.4-3.5); Glucose 110 mg/dL (70-105); Magnesium 2.4 mg/dL (1.6-2.6); Osmolality,Calculated 304 (280-300); Phosphorous 10.1 mg/dL (2.7-4.5); Potassium 5.4 mEq/L (3.5-5.1); Sodium 134 mEq/L (136-145); Vancomycin,Random 15 mcg/mL; eGFR For African Americans 7 (> 60); eGFR For Non-African Americans 6 (> 60)
[2021-08-21] MEDS: FentaNYL (PF) 1,000 MCG/100 ML IV.SOLN IVC SCH ×2 (05:51→12:25)
[2021-08-21] MEDS: Nitroglycerin 1 INCH/GM PACKET TP SCH ×2 (05:51→11:42)
[2021-08-21] MEDS ORDERED: Vancomycin 1,500 MG/265 ML IV.SOLN IVPB ONE (06:00)
[2021-08-21] MEDS ORDERED: Calcium Chloride 2,000 MG in 0.9 % Sodium Chloride 100 ML IVPB ONE (06:00)
[2021-08-21 06:03] LABS: Lymphocytes # 0.3 K/mcL (0.6-4.6); Monocytes # 0.3 K/mcL (0.0-1.3); Neutrophils # 3.1 K/mcL (1.6-8.9); Platelet Estimate Decreased (Normal)
[2021-08-21 06:07] LABS: Ferritin > 1500 ng/mL (20-250)
[2021-08-21] MEDS ORDERED: Vasopressin 40 UNIT in D5% in Water 100 ML IVC SCH (06:30)
[2021-08-21] MEDS ORDERED: Pantoprazole 40 MG VIAL IVP SCH (06:30)
[2021-08-21] MEDS: Norepinephrine 16 MG in 0.9 % Sodium Chloride 500 ML IVC SCH ×2 (06:39→11:38)
[2021-08-21] MEDS: SODIUM CITRATE 500 ML CRRT SCH ×3 (06:40→12:59)
[2021-08-21] MEDS: niCARdipine 20 MG/200 ML MLS IVC SCH ×3 (07:31→11:42)
[2021-08-21] MEDS: amLODIPine 5 MG TABLET PO SCH (07:34)
[2021-08-21] MEDS: calcitrioL 0.25 MCG CAPSULE PO SCH (07:34)
[2021-08-21] MEDS: Aspirin Enteric Coated 81 MG Tablet PO SCH (07:34)
[2021-08-21] MEDS: hydrALAZINE 25 MG TABLET PO SCH (07:34)
[2021-08-21] MEDS: Dexamethasone Sodium Phos/PF 10 MG/ML VIAL IVP SCH (07:45)
[2021-08-21] MEDS: *HR* Heparin 5,000 UNIT/ML VIAL IVP PRN (07:45)
[2021-08-21] MEDS: Cisatracurium 200 MG in 0.9 % Sodium Chloride 180 ML IVC SCH ×2 (08:00→14:01)
[2021-08-21] MEDS ORDERED: 0.9 % Sodium Chloride 250 ML ONE (08:40)
[2021-08-21 08:47] LABS: ABG Base Excess -8 mEq/L (-2 to 3); ABG HCO3 20 mEq/L (21-27); ABG Oxygen Saturation 75 % (95-98); ABG PCO2 52 mmHg (35-45); ABG PO2 50 mmHg (85-104); ABG TCO2 22 mEq/L (20-26); Blood Gas VT 500 cc
[2021-08-21] MEDS ORDERED: Chlorhexidine Rinse 15 ML MOUTHWASH MM SCH (09:00)
[2021-08-21] MEDS ORDERED: *HR* Metoprolol 5 MG/5 ML VIAL IVP ONE ×2 (09:11→09:12)
[2021-08-21] MEDS ORDERED: *HR* Heparin 5,000 UNIT/ML VIAL ONE (09:24)
[2021-08-21 09:57] LABS: ABG Base Excess -8 mEq/L (-2 to 3); ABG HCO3 21 mEq/L (21-27); ABG Oxygen Saturation 58 % (95-98); ABG PCO2 68 mmHg (35-45); ABG PO2 42 mmHg (85-104); ABG TCO2 23 mEq/L (20-26); Blood Gas Modality ASSIST CONTROL; Blood Gas VT 500 cc
[2021-08-21 10:18] LABS: ANCA IFA Pattern NONE DETECTED (None Detected); Serine Protease-3 Antibody 0 AU/mL (0-19)
[2021-08-21 12:00] VITALS: TEMP 97.4
[2021-08-21] MEDS ORDERED: Cefepime HCl 1,000 MG in 0.9 % Sodium Chloride 10 ML IVP SCH (12:00)
[2021-08-21 14:13] LABS: Hemoglobin 8.4 g/dL (12.9-16.9); Mean Corpuscular Hemoglobin 29.3 pg (28.0-33.3); Platelet Count 97 K/mcL (140-400); Red Blood Count 2.87 M/mcL (4.19-5.50)
[2021-08-21 14:15] LABS: Hematocrit 26.7 % (37.5-50.1); Immature Platelets 15.6 % (1.1-6.1); Lymphocytes # 0.1 K/mcL (0.6-4.6); Mean Corpuscular HGB Conc 31.5 g/dL (31.6-35.5); Mean Platelet Volume 13.9 fL (9.4-12.4); Monocytes # 0.1 K/mcL (0.0-1.3); Nucleated Red Blood Cells 8.9 /100 WBC (0); White Blood Count 2.6 K/mcL (4.3-11.1)
[2021-08-21 14:25] LABS: VBG Ionized Calcium 0.93 mmol/L (1.15-1.35)
[2021-08-21] MEDS ORDERED: *HR* EPINEPHrine 1 MG/10 ML SYRINGE IVP ONE (14:35)
[2021-08-21] MEDS: Heparin 25,000UNIT/250ML 1/2NS 25,000 UNIT/250 ML IV.SOLN IVC SCH (14:50)
[2021-08-21 14:58] LABS: Neutrophils # 2.3 K/mcL (1.6-8.9); Platelet Estimate Decreased (Normal)
[2021-08-21 18:01] VITALS: BP 42/34
[2021-08-21 18:04] VITALS: PULSE 38; O2SAT 48
== END 2021-08-21 14:36 | disposition expired | DRG 208 ==
LOC: EMEROOARM 18:46 → ICNU 18:46 → OBSVTOIN 21:46 → ICNU 23:50
PROVIDERS: ADMIT Student in an Organized Health Care Education/Training Program; ATTEND Student in an Organized Health Care Education/Training Program